=== PATIENT | male | born 1945 | race Caucasian/White ===

== ENCOUNTER 2018-07-26 00:17 | Observation (INO) ==
--- NOTE | 2018-07-26 04:02 | Internal Med History&Physical ---
Date of Encounter: 07/26/18 Time of Encounter: 04:02 Internal Medicine - H&P: HPI Chief complaint: Chest Pain History of present illness: Mr. Rascon is a 72 year old with past medical history of coronary artery disease status post CABG 4 in 2004, hypertension, and hyperlipidemia who initially presented to [facility] after experiencing an episode of chest pain earlier this afternoon at home. Patient states he was doing gardening work around the house earlier today and yesterday. After about several hours on Friday of gardening, he states that he began to feel tired and a little short of breath. He went inside, sat down and felt a little bit better. However, several hours later while watching TV the patient states he suddenly felt "edgy" and nervous. These symptoms were associated with a pressure-like sensation that was substernal and radiating to his back and diaphoresis. No nausea or lightheadedness. Chest pressure was not affected by position or breathing. Patient denies any recent illness or notice any tick bite. He states he took an old nitroglycerin tablet which did not provide him much relief. He checks his blood pressure at home shortly thereafter and found to be 178/98. He had another episode of chest pain in the waiting room at [facility] before being admitted to the ED described as substernal, dull stabbing pain. Patient found to be bradycardic in the 60s. During further evaluation his blood his heart rate dropped into the 30s. Patient remained asymptomatic and hemodynamically stable throughout. Initial EKG was performed at [facility] showed sinus rhythm with frequent PVCs with occasional supraventricular premature complexes in a bigeminal pattern. No electrolyte abnormalities. Initial troponins negative. Patient was given atropine and heart rate improved to the 70s and 80s. He continues to have persistent bigeminy on EKG per ED at [facility]. Otherwise hemodynamically stable. Patient denies any recent changes in his medications. Patient had nuclear stress test performed this past November which was negative for ischemia or infarct. Echo was performed around the same time which showed a normal left ventricular size and function with an EF of 60% and evidence of moderate diastolic dysfunction. Past Med Surg Social Fam HX - Past Medical History Medical history: coronary artery disease, hyperlipidemia, hypertension, myocardial infarction Psychiatric history: no psych history - Past Surgical History Additional surgical history: open heart surgery 2005. lt knee replacement. cararacts. GB. T&A. spinal stenosis surgery - Social History Smoking Status: Never smoker Smokeless Tobacco Status: No Alcohol use: none Drug use: none Internal Medicine - H&P: Meds Amlodipine Besylate 10 mg PO DAILY 05/15/17 [History] Aspirin [Lo-Dose Aspirin EC] 81 mg PO DAILY 05/15/17 [History] Isosorbide MONOnitrate [Isosorbide Mononitrate ER] 120 mg PO DAILY 05/15/17 [ History] Metoprolol Succinate 100 mg PO DAILY 05/15/17 [History] Nitroglycerin [Nitrostat] 0.4 mg SL Q5M PRN 05/15/17 [History] Pantoprazole Sodium 40 mg PO DAILY 05/15/17 [History] Rosuvastatin Calcium [Crestor] 20 mg PO QPM 05/15/17 [History] Cyanocobalamin (Vitamin B-12) [B-12] 1,000 mcg PO DAILY 07/26/18 [History] 3 Allergy/AdvReac Type Severity Reaction Status Date / Time atorvastatin [From Lipitor] AdvReac Muscle Pain Verified 05/15/17 09:44 fluorouracil [From Efudex] AdvReac Dizziness Verified 05/15/17 09:44 All Systems PM: A 10-system review of systems was performed and is negative for pertinent findings except as documented above in the HPI. - Constitutional Constitutional: no chills, no fever(s), no night sweats - EENT Eyes: no change in vision, no discharge, no pain, no photophobia Ears: no ear discharge, no ear pain, no tinnitus Nose, mouth and throat: no dysphagia, no nasal discharge, no neck pain, no sore throat - Cardiovascular Cardiovascular ROS IM: no chest pain, no diaphoresis, no dyspnea, no lightheadedness, no palpitations, no syncope - Respiratory Respiratory: no cough, no dyspnea, no wheezing, no excessive phlegm production - Gastrointestinal Gastrointestinal: no abdominal pain, no diarrhea, no hematemesis, no hematochezia, no melena, no nausea, no vomiting - Musculoskeletal Musculoskeletal ROS IM: no numbness, no tingling - Integumentary Integumentary IM: no rash, no unusual bruising - Neurological Neurological ROS: no confusion, no convulsions, no focal weakness, no numbness, no tingling, no tremor(s) - Hematologic/Lymphatic Hematologic/Lymphatic: no easy bruising - Constitutional Vitals: Temp Pulse Resp BP Pulse Ox 97.6 F 70 15 151/80 100 07/26/18 03:51 07/26/18 03:51 07/26/18 03:51 07/26/18 03:51 07/26/18 03:51 Exam: General: Alert and oriented Skin:Normal color, no rash, no lesions. HEENT:EOM, pupils equal, round and reactive. Cardiovascular:Normal S1 & S2, bradycardia; no rubs, murmurs or gallops. No JVD. Pulse regular. Lungs:Normal breath sounds, no wheezes or crackles. Abdomen:Soft, non-tender, no rigidity. Extremities:No deformity, no edema or tenderness, no joint swelling or clubbing. Neurological:Normal cognition and motor skills. Pulses:Carotid and radial pulses normal +2. Rest of the physical exam is non contributory Internal Med - H&P Results - Labs CBC & Chem 7: 07/26/18 04:36 07/26/18 04:36 - Assessment and plan (1) Chest pain Current Visit: No Status: Acute Assessment and plan: Chest pain described as pressure-like radiating to the back between the shoulder blades in the setting of coronary artery disease quadruple vessel disease status post CABG, associated with elevated blood pressure, concerning for aortic dissection versus ischemia/ACS. Patient currently chest pain-free but remains bradycardic in the high 30s to to 50s. Patient to baby aspirin at home. Initial troponins were negative. Repeat troponin here was also negative. Repeat EKG upon arrival shows a ventricular rate of 73 bpm, sinus rhythm again with frequent PVCs. No abnormal ST or T-wave changes noted. Continue telemetry. Trend troponin. We will obtain CT angio of the chest to rule out aortic dissection. Cardiology consult in the morning. Qualifiers: Chest pain type: unspecified Qualified Code(s): R07.9 - Chest pain, unspecified (2) Bradycardia Current Visit: Yes Status: Acute Assessment and plan: Repeat EKG shows sinus rhythm with a ventricular rate of 75 bpm. Repeat labs show no electrolyte abnormalities. However heart rate has been fluctuating between the upper 30s to 50s. Patient asymptomatic. We will check TSH. Will hold beta chani. Pacer pads we placed as precautionary measure. Cardiology consult in the morning. (3) Coronary artery disease Current Visit: Yes Status: Acute Assessment and plan: Coronary artery disease with quadruple vessel disease status post CABG in 2004. At this time patient is chest pain-free, negative troponins. Continue medical management, however hold beta chani. Qualifiers: Coronary Disease-Associated Artery/Lesion type: bypass graft [place] vs. transplanted heart: [place] heart Associated angina: angina presence unspecified Qualified Code(s): I25.810 - Atherosclerosis of coronary artery bypass graft(s) without angina pectoris (4) Hyperlipidemia Current Visit: Yes Status: Acute Assessment and plan: Continue home statin Qualifiers: Hyperlipidemia type: unspecified Qualified Code(s): E78.5 - Hyperlipidemia , unspecified (5) DVT prophylaxis Current Visit: Yes Status: Acute Assessment and plan: Subcutaneous heparin - Time Spent With Patient Total time spent is greater than 50% in coordination of care (as documented) at patient's floor/unit and/or counseling patient:
[2018-07-26] MEDS ORDERED: Naloxone 0.4 MG/ML INJ IVP PRN (04:22)
[2018-07-26 04:49] LABS: Basophils % 0.4 %; Eosinophils # 0.1 K/mcL (0.0-0.6); Hematocrit 43.1 % (37.5-50.1); Hemoglobin 14.1 g/dL (12.9-16.9); Immature Granulocytes % 0.4 % (0-4); Lymphocytes # 2.2 K/mcL (0.6-4.6); Lymphocytes % 30.2 %; Mean Corpuscular HGB Conc 32.7 g/dL (31.6-35.5); Mean Corpuscular Hemoglobin 29.7 pg (28.0-33.3); Mean Corpuscular Volume 90.7 fL (83.0-100.0); Mean Platelet Volume 11.2 fL (9.4-12.4); Monocytes # 0.6 K/mcL (0.0-1.3); Monocytes % 7.6 %; Neutrophils # 4.4 K/mcL (1.6-8.9); Platelet Count 174 K/mcL (140-400); Red Blood Count 4.75 M/mcL (4.19-5.50); Red Cell Distribution Width 13.5 % (11.5-14.5); Segmented Neutrophils % 60.4 %
[2018-07-26 05:10] LABS: Alanine Aminotransferase 17 Units/L (7-52); Albumin 4.2 g/dL (3.5-5.7); Albumin/Globulin Ratio 1.8 (1.1-2.2); Alkaline Phosphatase 44 Units/L (34-104); Aspartate Amino Transferase 17 Units/L (13-39); BUN/Creatinine Ratio 11 (6-26); Bilirubin,Total 0.4 mg/dL (0.3-1.0); Blood Urea Nitrogen 12 mg/dL (8-23); Carbon Dioxide 29 mEq/L (23-29); Chloride 106 mEq/L (98-107); Globulin 2.4 g/dL (2.4-3.5); Glucose 99 mg/dL (70-105); Osmolality,Calculated 294 (280-300); Potassium 4.5 mEq/L (3.5-5.1); Sodium 142 mEq/L (136-145); Total Protein 6.6 g/dL (6.4-8.9); eGFR For Non-African Americans > 60 (> 60)
[2018-07-26] MEDS ORDERED: Isovue-370 500 ML INFUS..BTL IV ONE (05:18)
[2018-07-26] MEDS ORDERED: Nitroglycerin 0.4 MG TAB.SUBL SL PRN (05:43)
[2018-07-26] MEDS: *HR* Heparin 5,000 UNIT/ML VIAL SQ SCH ×3 (06:09→22:34)
[2018-07-26 07:17] LABS: Thyroid Stimulating Hormone 4.168 mcIU/mL (0.340-5.600)
--- NOTE | 2018-07-26 10:02 | Cardiology Consult Note ---
<Willie Gonzalez R - Last Filed: 07/26/18 11:20> Date of Encounter: 07/26/18 Time of Encounter: 10:02 Assessment and Plan (1) Symptomatic bradycardia Current Visit: Yes Status: Acute Presented with dyspnea, chest pain, fatigue that started yesterday while doing yard work. On presentation SR with bigeminal PACs, then reportedly HR dropped to the 30s-- was given atropine. Pt reports dizziness after atropine, but none prior. On telemetry pt is sinus kyara with PACs. 12 hr tele AVG HR 44, no AV block is noted. K, Mag, TSH WNL. On Toprol XL 100mg daily at home, last dose 07/25 AM. Hold BB and avoid AV gianni blockers for now. Continue telemetry. Hx of CABG in 2004, negative stress test 01/2017. Troponins negative x 2. Repeat ischemic evaluation warranted given CP and bradycardia. Plan for nuclear stress test tomorrow. Continue to follow. (2) Chest pain Current Visit: No Status: Acute Troponin negative x 2. Trend for 3. No acute ischemic ECG findings. TTE to evaluate structure and function. Stress test tomorrow. Qualifiers: Chest pain type: unspecified Qualified Code(s): R07.9 - Chest pain, unspecified (3) Coronary artery disease Current Visit: Yes Status: Acute Hx of CABG in 2004. Continue ASA. Allergy listed to Atorvastatin--will determine if he is willing to try a different statin. No BB currently due to bradycardia. Qualifiers: Coronary Disease-Associated Artery/Lesion type: bypass graft [place] vs. transplanted heart: [place] heart Associated angina: angina presence unspecified Qualified Code(s): I25.810 - Atherosclerosis of coronary artery bypass graft(s) without angina pectoris Discussion w patient/family: The assessment and plan as outlined above was discussed with the patient and/or family members who expressed understanding and agreement. All questions were answered. Thank you for involving us in the care of your patient. Please call with any questions. I will discuss all the above with Dr. Jerome and make changes as necessary. History of Present Illness Consult date: 07/26/18 Consult reason: Bradycardia, CP Chief complaint: CP, dyspnea History of present illness: Mr. Rascon is a 72 year old male with PMH of CAD s/p CABG 4 in 2004, HTN, and HLD who presented to [facility] for an episode of chest pain. Patient states he was doing gardening work around the house, chopping stumps. After several hours he began to feel tired and a little short of breath. He went inside, sat down and felt a little bit better. Hours later he developed chest pressure-- substernal and radiating to his back and diaphoresis. No alleviating or exacerbating symptoms. He states he took an old nitroglycerin tablet without relief. Reports BP at home was 178/98. He had another episode of chest pain in the waiting room at [facility] before being admitted to the ED. Patient found to be SR with PACs then rate reportedly dropped into the 30s. EKG bigeminal PACs. Initial troponins negative. Patient was given atropine and heart rate improved to the 70s and 80s. He denies dizziness or lightheadedness aside from when atropine was given. Pt was on Toprol XL 100mg daily, last dose yesterday AM. Prior CV testing: TTE 12/17/16: LVEF 60%. Normal left ventricular size and systolic function. There is evidence of moderate diastolic dysfunction of the left ventricle. Normal right ventricular size and function. No significant valvular dysfunction. No pulmonary hypertension. Pharmacologic nuclear stress test 11/2016 negative for ischemia or infarct. Past Med Surg Social Fam HX - Past Medical History Medical history: coronary artery disease, hyperlipidemia, hypertension, myocardial infarction Psychiatric history: no psych history - Past Surgical History Additional surgical history: open heart surgery 2004. lt knee replacement. cararacts. GB. T&A. spinal stenosis surgery - Social History Smoking Status: Never smoker Smokeless Tobacco Status: No Alcohol use: none Drug use: none Medications and Allergies Amlodipine Besylate 10 mg PO DAILY 05/15/17 [History] Aspirin [Lo-Dose Aspirin EC] 81 mg PO DAILY 05/15/17 [History] Isosorbide MONOnitrate [Isosorbide Mononitrate ER] 120 mg PO DAILY 05/15/17 [ History] Metoprolol Succinate 100 mg PO DAILY 05/15/17 [History] Nitroglycerin [Nitrostat] 0.4 mg SL Q5M PRN 05/15/17 [History] Pantoprazole Sodium 40 mg PO DAILY 05/15/17 [History] Rosuvastatin Calcium [Crestor] 20 mg PO QPM 07/20/17 [History] Cyanocobalamin (Vitamin B-12) [B-12] 1,000 mcg PO DAILY 07/26/18 [History] 3 Allergy/AdvReac Type Severity Reaction Status Date / Time atorvastatin [From Lipitor] AdvReac Muscle Pain Verified 05/15/17 09:44 fluorouracil [From Efudex] AdvReac Dizziness Verified 05/15/17 09:44 All Systems Review: The remainder of the systems were reviewed and are negative - Constitutional Constitutional: fatigue - Cardiovascular Cardiovascular: as per HPI, chest pain at rest, chest pain with exertion, diaphoresis, radiating jaw, neck or arm pain - Respiratory Respiratory: dyspnea Physical Examination Vital Signs, Last 4 Hours Temp Pulse Resp BP Pulse Ox 07/26/18 07:44 97.9 F 49 17 127/62 95 Vital Signs Temp Pulse Resp BP Pulse Ox 07/26/18 07:44 97.9 F 49 17 127/62 95 07/26/18 03:51 97.6 F 70 15 151/80 100 Intake and Output 07/25/18 07/26/18 07/26/18 23:59 07:59 15:59 Intake Total 0 / 0 Balance 0 / 0 Intake: Oral 0 / 0 Other: # Voids 1 Weight 102.7 kg Patient Weight 07/26/18 23:59 Weight 102.7 kg General: Conversant, No Apparent Distress HEENT: Atraumatic, Normocephaly, Mucus Membranes Moist Neck: No JVD, Normal carotid pulses Cardiac: Reg Rate and Rhythm, Normal S1 and S2, No Murmur Lungs: Normal Breath Sounds, No Wheeze, Rales, Rhonchi Neuro: Alert and responsive, No focal deficits noted Abdomen: Soft, Non-Tender Skin: No rashes noted on visualized skin Musculoskeletal: No Chest Wall Tenderness Extremities: No Clubbing, No Cyanosis, No Edema, Normal Pulses Results 07/26/18 04:36 07/26/18 04:36 Lab Results 07/26/18 07/26/18 07/26/18 04:36 04:36 04:36 WBC 7.2 Hgb 14.1 Hct 43.1 Plt Count 174 Sodium 142 Potassium 4.5 Chloride 106 Carbon Dioxide 29 BUN 12 Creatinine 1.05 Glucose 99 Calcium 9.0 Magnesium 2.0 Total Bilirubin 0.4 AST 17 ALT 17 Alkaline Phosphatase 44 Troponin I < 0.03 TSH 4.168 Short CBC 07/26/18 Range/Units 04:36 WBC 7.2 (4.3-11.1) K/mcL Hgb 14.1 (12.9-16.9) g/dL Hct 43.1 (37.5-50.1) % Plt Count 174 (140-400) K/mcL Neutrophils # 4.4 (1.6-8.9) K/mcL BMP 07/26/18 Range/Units 04:36 Sodium 142 (136-145) mEq/L Potassium 4.5 (3.5-5.1) mEq/L Chloride 106 (98-107) mEq/L Carbon Dioxide 29 (23-29) mEq/L BUN 12 (8-23) mg/dL Creatinine 1.05 (0.70-1.30) mg/dL Glucose 99 (70-105) mg/dL Calcium 9.0 (8.6-10.3) mg/dL Cardiac Enzymes 07/26/18 Range/Units 04:36 Troponin I < 0.03 (< 0.04) ng/mL Liver Function 07/26/18 Range/Units 04:36 Total Bilirubin 0.4 (0.3-1.0) mg/dL AST 17 (13-39) Units/L ALT 17 (7-52) Units/L Alkaline Phosphatase 44 (34-104) Units/L Albumin 4.2 (3.5-5.7) g/dL Impressions Abdomen/Pelvis CTA 07/26/18 00:00 IMPRESSION: 1. No evidence of thoracic or abdominal aortic aneurysm or dissection. 2. No acute abnormality within the chest, abdomen, and pelvis. 3. 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 4. 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 D/ / Edward Buchanan MD / Edward Buchanan MD Interpreting Provider: Edward Buchanan MD Chest CTA 07/26/18 05:45 IMPRESSION: 1. No evidence of thoracic or abdominal aortic aneurysm or dissection. 2. No acute abnormality within the chest, abdomen, and pelvis. 3. 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 4. 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 D/ / Edward Buchanan MD / Edward Buchanan MD Interpreting Provider: Edward Buchanan MD Active Medications Aspirin (Aspirin Ec) 81 mg PO DAILY [facility] Stop: 01/25/19 09:01 Last Admin: 07/26/18 10:09 Dose: 81 mg Heparin Sodium (Porcine) (Heparin) 5,000 unit SQ Q8HCO JAK Stop: 01/25/19 06:01 Last Admin: 07/26/18 06:09 Dose: 5,000 unit Naloxone HCl (Narcan) 0.4 mg IVP Q2MIN PRN PRN Reason: SEE COMMENTS Stop: 01/25/19 04:23 Nitroglycerin (Nitroglycerin) 0.4 mg SL Q5M PRN PRN Reason: Chest Pain Stop: 01/25/19 05:44 Omeprazole (Prilosec) 20 mg PO DAILY [facility] Stop: 01/25/19 09:01 Last Admin: 07/26/18 10:09 Dose: 20 mg Rosuvastatin Calcium (Crestor) 20 mg PO QPM [facility] Stop: 01/25/19 18:01 - Imaging and Cardiology Stress Test: report reviewed Echo: report reviewed - EKG Interpretation EKG results cardiology: personally reviewed (SR with bigeminal PACs), other (12 hr tele AVG HR 44, sinus kyara with PACs) Consult Discharge Plan - Plan Referrals: Allen Duval, [Primary Care Provider] - <Jaky Jerome - Last Filed: 07/26/18 12:08> Date of Encounter: 07/26/18 - Attending Attestation Patient was seen and evaluated independently by me. Findings, assessment and plan were discussed at length with patient, questions answered. Agree with nurse practitioner's documentation. Addition as follows, 72 yoCM ho CABG 2004 w/o angina since, HTN, HLD. P/w exertional chest pressure during strenuous yard work 2-3 hours yesterday and another episode of chest discomfort at rest 3-4 hours later. No syncope, dizziness, palpitations Sinus bradycardia 30s intermittent with or without hypertension. ECG SR PACs, Tele intermittent SR 30s, neg trop, TTE pending. BP ok, no O2, no JVC, CTA, kyara, no M/G/R, NT, no edema. A: Exertional angina class II, s/p CABG Marked sinus bradycardia, currently asymptomatic, etiology ddx ischemia + BB, ? CI P: - hold BB for now - pending TTE - stress SPECT am - [facility] decision on stress test, then decision on PPM. Jaky Jerome MD, PhD Assessment and Plan Discussion w patient/family: The assessment and plan as outlined above was discussed with the patient and/or family members who expressed understanding and agreement. All questions were answered. Thank you for involving us in the care of your patient. Please call with any questions. History of Present Illness History of present illness: Mr. Rascon is a 72 year old male All Systems Review: The remainder of the systems were reviewed and are negative Physical Examination Vital Signs, Last 4 Hours Temp Pulse Resp BP Pulse Ox 07/26/18 11:35 98.6 F 51 17 110/74 96 Results 07/26/18 04:36 07/26/18 04:36 Lab Results 07/26/18 07/26/18 07/26/18 04:36 04:36 04:36 WBC 7.2 Hgb 14.1 Hct 43.1 Plt Count 174 Sodium 142 Potassium 4.5 Chloride 106 Carbon Dioxide 29 BUN 12 Creatinine 1.05 Glucose 99 Calcium 9.0 Magnesium 2.0 Total Bilirubin 0.4 AST 17 ALT 17 Alkaline Phosphatase 44 Troponin I < 0.03 TSH 4.168 07/26/18 11:03 WBC Hgb Hct Plt Count Sodium Potassium Chloride Carbon Dioxide BUN Creatinine Glucose Calcium Magnesium Total Bilirubin AST ALT Alkaline Phosphatase Troponin I < 0.03 TSH
[2018-07-26] MEDS: Aspirin Enteric Coated 81 MG Tablet PO SCH (10:09)
--- NOTE | 2018-07-26 15:30 | Internal Med Progress Note ---
Hospitalist Progress Note - Encounter Date of Encounter: 07/26/18 Time of Encounter: 15:00 - Subjective Interval History: SUBJECTIVE: The patient was admitted with chest pain. He has not had any of it after admitting him to the hospital. Denies difficulty breathing, coughing and wheezing. Denies abdominal pain, nausea and vomiting. He has normal urination. OBJECTIVE: Skin: Free of rash and discoloration. ENMT: Oral/pharyngeal mucosa is normal in appearance. Eyes: Sclera is white. There is no discharge from eyes. Respiratory: Normal breath sounds; no crackles or wheezes. CV: Heart is regular; no gallop or murmur. GI: Abdomen is soft and not tender. There is no palpable mass or visceromegaly. Neuro: There is no focal deficits. ASSESSMENT AND PLAN: Chest pain/bradycardia. He has underlying coronary artery disease. He was evaluated by cardiology. Nuclear medicine stress test is scheduled for tomorrow. He is on Crestor and enteric coated aspirin. We cannot use beta- blockers due to his bradycardia. Hyperlipidemia. We will continue Crestor. GERD. He is on Prilosec. - Exam Vitals: Temp Pulse Resp BP Pulse Ox 98.6 F 51 17 110/74 96 07/26/18 11:35 07/26/18 11:35 07/26/18 11:35 07/26/18 11:35 07/26/18 11:35 Exam: xx - Assessment and Plan (1) Chest pain Current Visit: No Status: Acute (2) Bradycardia Current Visit: Yes Status: Acute (3) Coronary artery disease Current Visit: Yes Status: Acute (4) Hyperlipidemia Current Visit: Yes Status: Acute (5) GERD (gastroesophageal reflux disease) Current Visit: Yes Status: Chronic - Time Spent with Patient Total time spent is greater than 50% in coordination of care (as documented) at patient's floor/unit and/or counseling patient: 25 - 35 minutes Plan of Care Discussed with: patient Internal Medicine: Result - Labs CBC & Chem 7: 07/26/18 04:36 07/26/18 04:36 Labs: Short CBC 07/26/18 Range/Units 04:36 WBC 7.2 (4.3-11.1) K/mcL Hgb 14.1 (12.9-16.9) g/dL Hct 43.1 (37.5-50.1) % Plt Count 174 (140-400) K/mcL Neutrophils # 4.4 (1.6-8.9) K/mcL BMP 07/26/18 04:36 Sodium 142 Potassium 4.5 Chloride 106 Carbon Dioxide 29 BUN 12 Creatinine 1.05 Glucose 99 Calcium 9.0 Cardiac Enzymes 07/26/18 07/26/18 Range/Units 04:36 11:03 Troponin I < 0.03 < 0.03 (< 0.04) ng/mL Liver Function 07/26/18 Range/Units 04:36 Total Bilirubin 0.4 (0.3-1.0) mg/dL AST 17 (13-39) Units/L ALT 17 (7-52) Units/L Alkaline Phosphatase 44 (34-104) Units/L Albumin 4.2 (3.5-5.7) g/dL - Impressions Impressions Abdomen/Pelvis CTA 07/26/18 00:00 IMPRESSION: 1. No evidence of thoracic or abdominal aortic aneurysm or dissection. 2. No acute abnormality within the chest, abdomen, and pelvis. 3. 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 4. 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 D/ / Edward Buchanan MD / Edward Buchanan MD Interpreting Provider: Edward Buchanan MD Chest CTA 07/26/18 05:45 IMPRESSION: 1. No evidence of thoracic or abdominal aortic aneurysm or dissection. 2. No acute abnormality within the chest, abdomen, and pelvis. 3. 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 4. 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 D/ / Edward Buchanan MD / Edward Buchanan MD Interpreting Provider: Edward Buchanan MD Consult Discharge Plan - Plan Referrals: Mukund,Allen E, DO [Primary Care Provider] - (1) Chest pain Qualifiers: Chest pain type: unspecified Qualified Code(s): R07.9 - Chest pain, unspecified (3) Coronary artery disease Qualifiers: Coronary Disease-Associated Artery/Lesion type: bypass graft [place] vs. transplanted heart: [place] heart Associated angina: angina presence unspecified Qualified Code(s): I25.810 - Atherosclerosis of coronary artery bypass graft(s) without angina pectoris (4) Hyperlipidemia Qualifiers: Hyperlipidemia type: unspecified Qualified Code(s): E78.5 - Hyperlipidemia, unspecified (5) GERD (gastroesophageal reflux disease) Qualifiers: Esophagitis presence: esophagitis presence not specified Qualified Code(s): K21.9 - Gastro-esophageal reflux disease without esophagitis
[2018-07-27] MEDS: *HR* Heparin 5,000 UNIT/ML VIAL SQ SCH (05:52)
[2018-07-27 06:46] VITALS: BP 129/56
[2018-07-27] MEDS ORDERED: Regadenoson 0.4 MG/5 ML SYRINGE IVP ONE (08:08)
--- NOTE | 2018-07-27 10:10 | Cardiology Progress Note ---
Date of Encounter: 07/27/18 Time of Encounter: 10:08 Assessment and Plan (1) Symptomatic bradycardia Current Visit: Yes Status: Inactive Presented with dyspnea, chest pain, fatigue that started while doing yard work. On presentation SR with bigeminal PACs, then reportedly HR dropped to the 30s, given atropine. Pt reports dizziness after atropine, but none prior. On Toprol XL 100mg daily at home, last dose 07/25 AM. Hold BB and avoid AV gianni blockers for now. HR has improved--12 hr tele AVG HR 52, SR with PACs. No AV block noted. Lowest HR 34 during nocturnal hours. Symptoms resolved. Troponins negative x 2. Stress test this AM negative for ischemia. Low level stress with max HR 121--appropriate response. TTE EF preserved. HR 60s at bedside. SR with PACs. Continue to hold BB. Recommend 48 hr Holter at d/c and will coordinate outpt follow-up in 2-3 weeks. Cardiology signing off. Reconsult PRN. (2) Chest pain Current Visit: No Status: Inactive Troponin negative. No acute ischemic ECG findings. TTE EF preserved. Low level stress negative for ischemia. 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 Qualifiers: Chest pain type: unspecified Qualified Code(s): R07.9 - Chest pain, unspecified (3) Coronary artery disease Current Visit: Yes Status: Acute Hx of CABG in 2004. Continue ASA. Allergy listed to atorvastatin, but crestor has been started. No BB currently due to bradycardia. Qualifiers: Coronary Disease-Associated Artery/Lesion type: bypass graft [place] vs. transplanted heart: [place] heart Associated angina: angina presence unspecified Qualified Code(s): I25.810 - Atherosclerosis of coronary artery bypass graft(s) without angina pectoris Discussion w patient/family: The assessment and plan as outlined above was discussed with the patient and/or family members who expressed understanding and agreement. All questions were answered. Thank you for involving us in the care of your patient. Please call with any questions. I will discuss all the above with Dr. Billingsley and make changes as necessary. Subjective Principal diagnosis: Symptomatic bradycardia Interval history: HR has improved, currently 60s at bedside with PACs. Pt denies recurrent CP. TTE resulted--LVEF 55-60%. Normal LV chamber size and function. Mild cLVH. Indeterminate diastolic function. Normal right ventricular structure and function. Moderate phtn. Estimated RVSP is 51 mmHg. No significant valvular dysfunction. Stress test resulted--Evidence of small prior infarct, but negative for ischemia. Low level stress max HR achieved 121bpm. Gated EF 50%. Objective Vital Signs, Last 4 Hours Temp Pulse Resp BP Pulse Ox 07/27/18 06:44 98.1 F 64 15 129/56 94 Vital Signs Temp Pulse Resp BP Pulse Ox 07/27/18 06:44 98.1 F 64 15 129/56 94 07/27/18 04:00 98 F 63 15 131/85 95 07/27/18 00:00 98.2 F 36 15 130/73 93 07/26/18 16:55 98.3 F 51 17 128/68 97 07/26/18 11:35 98.6 F 51 17 110/74 96 Intake and Output 07/26/18 07/27/18 07/27/18 23:59 07:59 15:59 Intake Total 240 / 240 120 / 120 Output Total 600 / 600 300 / 300 Balance -360 / -360 -180 / -180 Intake: Oral 240 / 240 120 / 120 Output: Urine 600 / 600 300 / 300 Other: Weight 102.5 kg Patient Weight 07/27/18 23:59 Weight 102.5 kg General: Conversant, No Apparent Distress HEENT: Atraumatic, Normocephaly, Mucus Membranes Moist Neck: No JVD, Normal carotid pulses Cardiac: Reg Rate and Rhythm, Normal S1 and S2, No Murmur Lungs: Normal Breath Sounds, No Wheeze, Rales, Rhonchi Neuro: Alert and responsive, No focal deficits noted Abdomen: Soft, Non-Tender Skin: No rashes noted on visualized skin Musculoskeletal: No Chest Wall Tenderness Extremities: No Clubbing, No Cyanosis, No Edema, Normal Pulses Results 07/26/18 04:36 07/26/18 04:36 Lab Results 07/26/18 11:03 Troponin I < 0.03 Cardiac Enzymes 07/26/18 Range/Units 11:03 Troponin I < 0.03 (< 0.04) ng/mL Impressions Echocardiogram 07/27/18 11:22 Impressions: LVEF 55-60%. Normal LV chamber size and function. Mild concentric left ventricular hypertrophy. Indeterminate diastolic function. Normal right ventricular structure and function. Moderate pulmonary hypertension. Estimated RVSP is 51 mmHg. No significant valvular dysfunction. Left Ventricular Wall Motion: Rest Echo Findings All wall segments showed normal motion. Findings: Study Quality * Technically adequate exam. ECG Findings * Sinus bradycardia with PACs. Left Ventricle * LVEF 55-60%. * Normal LV chamber size and function. * Mild concentric left ventricular hypertrophy. * Atypical septal motion consistent with a bundle branch block. * Indeterminate diastolic function. Right Ventricle * Normal right ventricular structure and function. Left Atrium * Severely dilated left atrium. Right Atrium * Moderately dilated right atrium. Aortic Valve * Trileaflet aortic valve with normal function. * No aortic regurgitation. * No aortic stenosis. Mitral Valve * Normal mitral valve structure and function. * No mitral stenosis. * Trace mitral regurgitation. Tricuspid Valve * Normal tricuspid valve structure and function. * Trace tricuspid regurgitation. * Moderate pulmonary hypertension. * Estimated RVSP is 51 mmHg. * Estimated RA pressure is 5 mmHg. Pulmonic Valve * Normal pulmonic valve structure and function. * No pulmonic regurgitation. Aorta * Normally sized aortic root. Pericardium * The pericardium appears normal. IVC * Normal IVC dimensions and inspiratory collapse. Pulmonary Artery * Normal visualized portions of the main pulmonary artery. Active Medications Aspirin (Aspirin Ec) 81 mg PO DAILY [facility] Stop: 01/25/19 09:01 Last Admin: 07/26/18 10:09 Dose: 81 mg Heparin Sodium (Porcine) (Heparin) 5,000 unit SQ Q8HCO [facility] Stop: 01/25/19 06:01 Last Admin: 07/27/18 05:52 Dose: 5,000 unit Naloxone HCl (Narcan) 0.4 mg IVP Q2MIN PRN PRN Reason: SEE COMMENTS Stop: 01/25/19 04:23 Nitroglycerin (Nitroglycerin) 0.4 mg SL Q5M PRN PRN Reason: Chest Pain Stop: 01/25/19 05:44 Omeprazole (Prilosec) 20 mg PO DAILY [facility] Stop: 01/25/19 09:01 Last Admin: 07/26/18 10:09 Dose: 20 mg Rosuvastatin Calcium (Crestor) 20 mg PO QPM [facility] Stop: 01/25/19 18:01 Last Admin: 07/26/18 17:22 Dose: 20 mg - Imaging and Cardiology Stress Test: report reviewed Echo: report reviewed - EKG Interpretation EKG results cardiology: other (12 hr tele AVG HR 52, SR with PACs. Lowest HR 34 , sinus kyara, during nocturnal hours.) Consult Discharge Plan - Plan Referrals: Allen Duval DO [Primary Care Provider] -
[2018-07-27] MEDS: Aspirin Enteric Coated 81 MG Tablet PO SCH (10:51)
--- NOTE | 2018-07-27 11:46 | Discharge Summary ---
Orders not resulted at time of discharge: Pending orders 07/26/18 11:42 NM steve perf SPECT multi [NM] Routine 07/27/18 10:17 ECG 48 holter monitor setup [ECG] Routine Date of Encounter: 07/27/18 Time of Encounter: 11:44 - Discharge Diagnosis (1) Chest pain Priority: Primary Status: Resolved Qualifiers: Chest pain type: unspecified Qualified Code(s): R07.9 - Chest pain, unspecified (2) Bradycardia Priority: Primary Status: Acute (3) Coronary artery disease Priority: Primary Status: Chronic Qualifiers: Coronary Disease-Associated Artery/Lesion type: bypass graft [place] vs. transplanted heart: [place] heart Associated angina: angina presence unspecified Qualified Code(s): I25.810 - Atherosclerosis of coronary artery bypass graft(s) without angina pectoris (4) Hyperlipidemia Priority: Secondary Status: Chronic Qualifiers: Hyperlipidemia type: unspecified Qualified Code(s): E78.5 - Hyperlipidemia , unspecified (5) GERD (gastroesophageal reflux disease) Priority: Secondary Status: Chronic Qualifiers: Esophagitis presence: esophagitis presence not specified Qualified Code(s) : K21.9 - Gastro-esophageal reflux disease without esophagitis Hospital course: HOSPITAL COURSE: Mr. Rascon is a 72 year old male. We admitted him with chest pain. He has underlying coronary artery disease. Cardiology was consulted. The patient had Cardiolite stress test. It did not show any significant abnormalities (it showed a small sized, moderate intensity and fixed apical inferior perfusion defectpossibly due to a small prior infarction). The patient did not have any chest pain during this short hospitalization. CONDITION AT DISCHARGE: He feels good. Denies chest pain and difficulty breathing. Denies abdominal pain, nausea and vomiting. He has normal bowel movements/urination. Skin: Free of rash and discoloration. Respiratory: Normal breath sounds with no crackles and wheezes bilaterally. CV: Heart is regular with no gallop or murmur. GI: Abdomen is flat and soft with no palpable mass or visceromegaly. Neuro exam: There is no focal deficits. Normal speech, swallowing and gait. SEE DISCHARGE ORDERS/MEDICATIONS.. I advised him to try Mylanta or Maalox, if he has another chest pain like this one at admission. Discharge discussed with: patient, family, nurse - Time Spent with Patient Total time spent providing and/or coordinating discharge services: Greater than 30 minutes (40 minutes..) - Discharge Medications Home Medications: Amlodipine Besylate 10 mg PO DAILY 05/15/17 [History] Aspirin [Lo-Dose Aspirin EC] 81 mg PO DAILY 05/15/17 [History] Isosorbide MONOnitrate [Isosorbide Mononitrate ER] 120 mg PO DAILY 05/15/17 [ History] Nitroglycerin [Nitrostat] 0.4 mg SL Q5M PRN 05/15/17 [History] Pantoprazole Sodium 40 mg PO DAILY 05/15/17 [History] Rosuvastatin Calcium [Crestor] 20 mg PO QPM 05/15/17 [History] Cyanocobalamin (Vitamin B-12) [B-12] 1,000 mcg PO DAILY 07/26/18 [History] Allergies/Adverse Reactions: 3 Allergy/AdvReac Type Severity Reaction Status Date / Time atorvastatin [From Lipitor] AdvReac Muscle Pain Verified 05/15/17 09:44 fluorouracil [From Efudex] AdvReac Dizziness Verified 05/15/17 09:44 Date of admission: 07/26/18 03:30 Primary care physician: Allen Duval DO Consults: 07/26/18 05:48 Consult to Cardiology [CONS] Routine Comment: Consulting Provider: Laura Philip Reason for Consult: Chest pain with the findings of a symptomatic bradycardia in the 30s to 50s and patient was significant coronary artery disease status post CABG. Call Completed: No Discharging clinician: Luis Iraheta Anticipated date of discharge: 07/27/18 - Constitutional Vitals: Temp Pulse Resp BP Pulse Ox 98.1 F 64 15 129/56 94 07/27/18 06:44 07/27/18 06:44 07/27/18 06:44 07/27/18 06:44 07/27/18 06:44 General appearance: Present: A&O X 3, no acute distress, answers questions appropriately Exam: xx - Patient Status Disposition: Home, Self-Care Condition: Good Functional capacity at discharge: independent ambulation Overall status at discharge: patient is back to baseline - Discharge Instructions Instructions: Chest Pain (DC), Holter Monitoring (DC), Bradycardia (DC) Follow Up With: Tayla Quinones CLOTHING PRESSER [Advanced Practice Nurse] - 07/31/18 10:30 am Additional Instructions: THE PATIENT WILL CARRY HOLTER MONITOR FOR 2 DAYS. NO BETA-BLOCKERS (INCLUDING METOPROLOL). MYLENTA OR MAALOX TO TRY, IF THE CHEST PAIN HAPPENS AGAIN.. - Diet and Activity Activity: resume usual activities as tolerated Diet: low fat, low cholesterol - VTE Deep Vein Thrombosis/Pulmonary Embolism Present on Admission: No
--- NOTE | 2018-07-27 15:40 | Electrocardiograph Report ---
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
== END 2018-07-27 14:39 | disposition home or self-care (01) ==
LOC: 2NENU → SUATTDRO 03:30
PROVIDERS: ADMIT Internal Medicine; ATTEND Internal Medicine

== ENCOUNTER 2021-01-31 18:19 | Inpatient (IN) ==
[2021-01-31] MEDS ORDERED: *HR* Heparin 10,000 UNIT/10 ML VIAL ONE ×2 (18:43→20:10)
[2021-01-31] MEDS ORDERED: Heparin 1,000 UNITS/500 mL 500 ML ONE (18:43)
[2021-01-31] MEDS ORDERED: Nitroglycerin 1,000 MCG/5 ML VIAL IV ONE (18:43)
[2021-01-31] MEDS ORDERED: ISOVUE-370 200 ML INFUS..BTL ONE (18:43)
[2021-01-31] MEDS ORDERED: 0.9 % Sodium Chloride 2,000 ML ONE (18:43)
[2021-01-31] MEDS ORDERED: Perflutren Lipid Microsphere 1.3 ML in 0.9 % Sodium Chloride 8.7 ML IVP PRN (19:17)
[2021-01-31] MEDS ORDERED: *HR* FentaNYL (PF) 100 MCG/2 ML VIAL ONE (19:22)
[2021-01-31] MEDS ORDERED: *HR* Midazolam HCl 2 MG/2 ML VIAL ONE (19:22)
[2021-01-31] MEDS ORDERED: *HR* Nitroprusside 50 MG VIAL IVC ONE (19:26)
[2021-01-31] MEDS ORDERED: D5% in Water 250 ML ONE (19:26)
[2021-01-31] MEDS ORDERED: Tirofiban 12.5 MG/250ML 12.5 MG/250 ML BAG IVC SCH (19:30)
[2021-01-31] MEDS: *HR* Ticagrelor 90 MG TABLET PO SCH (21:01)
[2021-01-31] MEDS ORDERED: Melatonin 3 MG TABLET PO PRN (23:38)
[2021-02-01] MEDS: *HR* Ticagrelor 90 MG TABLET PO SCH ×2 (07:41→20:31)
[2021-02-01 08:10] LABS: Basophils % 0.2 %; Eosinophils % 0.3 %; Hematocrit 37.7 % (37.5-50.1); Hemoglobin 12.1 g/dL (12.9-16.9); Immature Granulocytes % 0.3 % (0-4); Lymphocytes # 1.5 K/mcL (0.6-4.6); Lymphocytes % 15.7 %; Mean Corpuscular HGB Conc 32.1 g/dL (31.6-35.5); Mean Corpuscular Hemoglobin 30.1 pg (28.0-33.3); Mean Corpuscular Volume 93.8 fL (83.0-100.0); Mean Platelet Volume 11.4 fL (9.4-12.4); Monocytes % 10.2 %; Neutrophils # 6.9 K/mcL (1.6-8.9); Platelet Count 180 K/mcL (140-400); Red Blood Count 4.02 M/mcL (4.19-5.50); Red Cell Distribution Width 13.2 % (11.5-14.5); Segmented Neutrophils % 73.3 %; White Blood Count 9.4 K/mcL (4.3-11.1)
[2021-02-01 08:17] LABS: BUN/Creatinine Ratio 15 (6-26); Blood Urea Nitrogen 15 mg/dL (8-23); Calcium 8.4 mg/dL (8.6-10.3); Carbon Dioxide 26 mEq/L (23-29); Chloride 104 mEq/L (98-107); Glucose 113 mg/dL (70-105); Osmolality,Calculated 288 (280-300); Potassium 3.7 mEq/L (3.5-5.1); Sodium 138 mEq/L (136-145); eGFR For African Americans > 60 (> 60); eGFR For Non-African Americans > 60 (> 60)
[2021-02-01] MEDS: Cholecalciferol (D-3) 1,000 UNIT (25MCG) TABLET PO SCH (09:12)
[2021-02-01] MEDS: Aspirin Enteric Coated 81 MG Tablet PO SCH (09:12)
[2021-02-01] MEDS: Isosorbide MONOnitrate (24 HR) 60 MG TAB.ER.24H PO SCH (09:13)
[2021-02-01] MEDS: lisinopriL 20 MG TABLET PO SCH (09:13)
[2021-02-02] MEDS: Isosorbide MONOnitrate (24 HR) 60 MG TAB.ER.24H PO SCH (08:58)
[2021-02-02] MEDS: *HR* Ticagrelor 90 MG TABLET PO SCH ×2 (08:58→20:31)
[2021-02-02] MEDS: lisinopriL 20 MG TABLET PO SCH (08:58)
[2021-02-02] MEDS: Aspirin Enteric Coated 81 MG Tablet PO SCH (08:58)
[2021-02-02] MEDS: Cholecalciferol (D-3) 1,000 UNIT (25MCG) TABLET PO SCH (08:58)
[2021-02-03 06:59] VITALS: BP 139/61
[2021-02-03] MEDS: Isosorbide MONOnitrate (24 HR) 60 MG TAB.ER.24H PO SCH (08:29)
[2021-02-03] MEDS: Aspirin Enteric Coated 81 MG Tablet PO SCH (08:29)
[2021-02-03] MEDS: Cholecalciferol (D-3) 1,000 UNIT (25MCG) TABLET PO SCH (08:30)
[2021-02-03] MEDS: *HR* Ticagrelor 90 MG TABLET PO SCH (08:30)
[2021-02-03] MEDS: lisinopriL 20 MG TABLET PO SCH (08:30)
== END 2021-02-03 08:44 | disposition home or self-care (01) | DRG 246 ==
LOC: ICNU 19:15 → 2NNU 02-02 10:37
PROVIDERS: ADMIT Internal Medicine Cardiovascular Disease; ATTEND Internal Medicine Cardiovascular Disease